=== PATIENT | female | born 1995 | race Two or more races ===

== ENCOUNTER 2023-04-04 21:14 | Emergency (ER) | payer OTHER ==
[~2023-04-04] VITALS: Ht 157.5 cm; Wt 78.2 kg
[2023-04-04 21:14] VITALS: BP 132/70; PULSE 125; RESP 18; O2SAT 99
[2023-04-05] MEDS ORDERED: AMOX500C2 PO (00:05)
[2023-04-05 00:13] VITALS: TEMP 100.2
[2023-04-05] MEDS: IBUPROFEN 600 MG TAB PO ONE (00:13)
== END 2023-04-05 00:39 | disposition home or self-care (01) ==
LOC: ER 21:14
DX: J03.90 Acute tonsillitis, unspecified (principal)